=== PATIENT | female | born 1955 ===

== ENCOUNTER 2019-09-02 09:05 | Emergency (ER) | payer MEDICARE ==
[~2019-09-02] VITALS: Ht 149.9 cm; Wt 76.8 kg
[2019-09-02 09:16] VITALS: TEMP 99.1
[2019-09-02] MEDS ORDERED: VITAMINC500CH PO (10:00)
[2019-09-02 10:01] LABS: BASO % 0.3 % (0.0-2.0); EOS # 0.2 (0.0-0.7); EOS % 1.5 % (0-4.0); GRAN # 8.5 (1.4-6.5); GRAN % 75.2 % (42.2-75.2); HEMATOCRIT 44.5 % (37.0-47.0); HEMOGLOBIN 15.3 g/dl (12.5-16.0); LYMPH # 1.7 (1.2-3.4); LYMPH % 15.1 % (20.0-51.0); MEAN CELL VOLUME 91 fl (80.0-100.0); MEAN CORPUSCULAR HEMOGLOBIN 31 pg (27.0-31.0); MEAN CORPUSCULAR HGB CONC 34 g/dl (33.0-37.0); MEAN PLATELET VOLUME 9.9 fl (7.4-10.4); MONO # 0.9 (0.1-0.6); MONO % 7.6 % (1.7-9.3); PLATELET COUNT 248 K/mm3 (130-400); RED BLOOD COUNT 4.89 M/mm3 (4.10-5.30); REDCELL DISTRIBUTION WIDTH-CV 12.8 % (11.5-14.5)
[2019-09-02] MEDS ORDERED: VITAMIN D31000 IU PO (10:01)
[2019-09-02] MEDS ORDERED: CALCIUM WITH D31 CTB (10:01)
[2019-09-02] MEDS ORDERED: FLEXERIL 1010 MG/TAB PO (10:02)
[2019-09-02] MEDS ORDERED: PEPCID40 MG PO (10:03)
[2019-09-02 10:14] LABS: ALANINE AMINOTRANSFERASE 33 U/L (4-34); ALBUMIN 4.9 gm/dL (3.5-5.0); ALKALINE PHOSPHATASE 109 U/L (50-136); ANION GAP 11 mmol/L (7-16); AST,SGOT 36 U/L (15-37); BILIRUBIN,TOTAL 0.8 mg/dL (0.0-1.0); BLOOD UREA NITROGEN 11 mg/dL (7-17); CALCIUM 10.1 mg/dL (8.4-10.2); CARBON DIOXIDE 28 mmol/L (22-30); CHLORIDE 96 mmol/L (98-107); CREATININE, serum 0.51 (0.52-1.25); GLUCOSE 136 mg/dL (74-106); POTASSIUM 3.8 mmol/L (3.4-5.0); SODIUM 136 mmol/L (137-145); TOTAL PROTEIN 8.9 gm/dL (6.4-8.2)
[2019-09-02 10:27] LABS: TROPONIN-I < 0.012 ng/mL (0.000-0.035)
[2019-09-02] MEDS ORDERED: TAMBOCOR150 MG PO (10:27)
[2019-09-02] MEDS ORDERED: NEURONTIN300 MG/CAP PO (10:28)
[2019-09-02] MEDS ORDERED: NEURONTIN600 MG/TAB PO (10:29)
[2019-09-02] MEDS ORDERED: PRINIVIL10 MG PO (10:29)
[2019-09-02] MEDS ORDERED: BONIVA150 MG PO (10:29)
[2019-09-02] MEDS ORDERED: LOPRESSOR 550 MG/TAB PO (10:30)
[2019-09-02] MEDS ORDERED: MULTIPLE VITAMI1 CAP PO (10:31)
[2019-09-02] MEDS ORDERED: MORPHINE 1515 MG/TAB PO (10:31)
[2019-09-02] MEDS ORDERED: PERCOCET 325 MG1 TAB PO (10:32)
[2019-09-02] MEDS ORDERED: ZOLOFT 100MG100 MG PO (10:32)
[2019-09-02] MEDS ORDERED: COUMADIN 2MG2 MG/TAB PO (10:33)
[2019-09-02 13:37] VITALS: BP 142/87; PULSE 68
== END 2019-09-02 13:30 | disposition home or self-care (01) ==
LOC: COL.ER 09:05
PROVIDERS: Nurse Practitioner Primary Care
DX: I10 Essential (primary) hypertension (principal); K08.89 Other specified disorders of teeth and supporting structures; I48.91 Unspecified atrial fibrillation; M54.9 Dorsalgia, unspecified; G89.29 Other chronic pain; Z79.01 Long term (current) use of anticoagulants; Z79.891 Long term (current) use of opiate analgesic; Z89.611 Acquired absence of right leg above knee
CPT/HCPCS: J0780; J1170; J1200; J7040

== ENCOUNTER 2020-03-10 17:20 | Emergency (ER) | payer MEDICARE, OTHER ==
[~2020-03-10] VITALS: Ht 152.4 cm; Wt 77.3 kg
[~2020-03-10 17:20] MED LIST: BONIVA150 MG PO; CALCIUM WITH D31 CTB; COUMADIN 2MG2 MG/TAB PO; FLEXERIL 1010 MG/TAB PO; LOPRESSOR 550 MG/TAB PO; MORPHINE 1515 MG/TAB PO; MULTIPLE VITAMI1 CAP PO; NEURONTIN300 MG/CAP PO; NEURONTIN600 MG/TAB PO; PEPCID40 MG PO; PERCOCET 325 MG1 TAB PO; PRINIVIL10 MG PO; TAMBOCOR150 MG PO; VITAMIN D31000 IU PO; VITAMINC500CH PO; ZOLOFT 100MG100 MG PO
[2020-03-10] MEDS ORDERED: ZITHROMAX 250M250 MG PO (18:36)
[2020-03-10] MEDS ORDERED: PREDNISONE20 MG PO (18:36)
[2020-03-10 18:56] VITALS: BP 141/83; PULSE 82; TEMP 99.2
== END 2020-03-10 18:57 | disposition home or self-care (01) ==
LOC: COL.ER 17:20
DX: U07.1 COVID-19 (principal); I10 Essential (primary) hypertension; K21.9 Gastro-esophageal reflux disease without esophagitis; M19.90 Unspecified osteoarthritis, unspecified site; Z90.49 Acquired absence of other specified parts of digestive tract; Z87.891 Personal history of nicotine dependence; Z79.01 Long term (current) use of anticoagulants
CPT/HCPCS: J1100

== ENCOUNTER 2020-03-15 20:21 | Inpatient (IN) | payer MEDICARE, OTHER ==
[~2020-03-15] VITALS: Ht 152.4 cm; Wt 75.3 kg
[~2020-03-15 20:21] MED LIST changes: +PREDNISONE20 MG PO; +ZITHROMAX 250M250 MG PO
[2020-03-15 21:08] LABS: BASO % 0.1 % (0.0-2.0); EOS % 0.3 % (0-4.0); GRAN # 5.2 (1.4-6.5); GRAN % 71.8 % (42.2-75.2); HEMATOCRIT 44.9 % (37.0-47.0); HEMOGLOBIN 15.3 g/dl (12.5-16.0); LYMPH # 1.5 (1.2-3.4); LYMPH % 21.3 % (20.0-51.0); MEAN CELL VOLUME 91 fl (80.0-100.0); MEAN CORPUSCULAR HEMOGLOBIN 31 pg (27.0-31.0); MEAN CORPUSCULAR HGB CONC 34 g/dl (33.0-37.0); MEAN PLATELET VOLUME 9.3 fl (7.4-10.4); MONO # 0.4 (0.1-0.6); MONO % 5.8 % (1.7-9.3); PLATELET COUNT 217 K/mm3 (130-400); RED BLOOD COUNT 4.91 M/mm3 (4.10-5.30); REDCELL DISTRIBUTION WIDTH-CV 12.8 % (11.5-14.5)
[2020-03-15 21:09] LABS: INR 2.7 (0.8-3.0); PROTHROMBIN TIME 30.9 SECONDS (9.7-12.8)
[2020-03-15 21:15] LABS: ALANINE AMINOTRANSFERASE 87 U/L (4-34); ALBUMIN 4.4 gm/dL (3.5-5.0); ALKALINE PHOSPHATASE 92 U/L (50-136); ANION GAP 11 mmol/L (7-16); AST,SGOT 54 U/L (15-37); BILIRUBIN,TOTAL 0.5 mg/dL (0.0-1.0); BLOOD UREA NITROGEN 16 mg/dL (7-17); CALCIUM 9.5 mg/dL (8.4-10.2); CARBON DIOXIDE 27 mmol/L (22-30); CHLORIDE 96 mmol/L (98-107); CREATINE KINASE 26 U/L (30-135); CREATININE, serum 0.67 (0.52-1.25); GLUCOSE 134 mg/dL (74-106); POTASSIUM 3.4 mmol/L (3.4-5.0); SODIUM 133 mmol/L (137-145)
[2020-03-15 21:32] LABS: TROPONIN-I < 0.012 ng/mL (0.000-0.035)
[2020-03-16] VITALS (7 sets, daily range): BP systolic 101–131; BP diastolic 64–81; PULSE 105–121; TEMP 98.1; O2SAT 88–94
[2020-03-16] MEDS ORDERED: MS CONTIN 115 MG/TAB PO (04:45)
[2020-03-16] MEDS ORDERED: FLEXERIL 1010 MG/TAB PO (04:46)
[2020-03-16] MEDS ORDERED: ZOLOFT 50MG50 MG PO (04:46)
[2020-03-16] MEDS ORDERED: ZOLOFT 100MG100 MG PO (04:46)
[2020-03-16] MEDS ORDERED: LIPITOR20 MG PO (04:47)
[2020-03-16] MEDS ORDERED: PERCOCET 325 MG1 TAB PO (04:47)
[2020-03-16] MEDS ORDERED: PEPCID 20MG TAB20 MG PO (04:47)
[2020-03-16] MEDS ORDERED: COUMADIN4 MG PO (04:48)
[2020-03-16] MEDS ORDERED: NEURONTIN300 MG/CAP PO (04:48)
[2020-03-16] MEDS ORDERED: COUMADIN 3MG3 MG/TAB PO (04:49)
[2020-03-16] MEDS ORDERED: VITAMIN B COMPL1 SGL PO (04:50)
[2020-03-16] MEDS ORDERED: VITAMINC1000TA PO (04:50)
[2020-03-16] MEDS ORDERED: CALCIUM 600MG+D1 TAB PO (04:50)
[2020-03-16] MEDS ORDERED: ONE-A-DAY ESSE1 EACH PO (04:51)
[2020-03-16] MEDS ORDERED: LOPRESSOR 550 MG/TAB PO (04:53)
[2020-03-16] MEDS ORDERED: TAMBOCOR150 MG PO (04:53)
[2020-03-16] MEDS ORDERED: BONIVA150 MG PO (04:54)
[2020-03-16] MEDS ORDERED: MAGNESIUM200 MG PO (04:55)
[2020-03-16 08:23] LABS: BASO % 0.2 % (0.0-2.0); GRAN # 4.8 (1.4-6.5); GRAN % 85.4 % (42.2-75.2); HEMATOCRIT 43.6 % (37.0-47.0); HEMOGLOBIN 14.8 g/dl (12.5-16.0); LYMPH # 0.6 (1.2-3.4); LYMPH % 10.1 % (20.0-51.0); MEAN CELL VOLUME 91 fl (80.0-100.0); MEAN CORPUSCULAR HEMOGLOBIN 31 pg (27.0-31.0); MEAN CORPUSCULAR HGB CONC 34 g/dl (33.0-37.0); MEAN PLATELET VOLUME 9.4 fl (7.4-10.4); MONO # 0.2 (0.1-0.6); MONO % 3.6 % (1.7-9.3); PLATELET COUNT 185 K/mm3 (130-400); RED BLOOD COUNT 4.79 M/mm3 (4.10-5.30)
[2020-03-16 08:37] LABS: ANION GAP 9 mmol/L (7-16); BLOOD UREA NITROGEN 13 mg/dL (7-17); C-REACTIVE PROTEIN 3.9 mg/dL (0.0-0.9); CALCIUM 8.1 mg/dL (8.4-10.2); CARBON DIOXIDE 27 mmol/L (22-30); CHLORIDE 100 mmol/L (98-107); CREATININE, serum 0.43 (0.52-1.25); GLUCOSE 160 mg/dL (74-106); POTASSIUM 3.8 mmol/L (3.4-5.0); SODIUM 136 mmol/L (137-145)
[2020-03-16 08:48] LABS: TROPONIN-I < 0.012 ng/mL (0.000-0.035)
[2020-03-16 09:05] LABS: THYROID STIMULATING HORMONE 0.902 uIU/mL (0.465-4.680)
[2020-03-16 09:49] LABS: CLOSTRIDIUM DIFF A/B NEG; CLOSTRIDIUM DIFF A/B INTERP No C.diff present
--- NOTE | 2020-03-16 21:00 | NUR ---
Arrived to the unit via stretcher; alert and oriented and in no diestress upon arrival. Assessment complete; call light left within reach.
[2020-03-16] MEDS ORDERED: DESYREL 50MG50 MG PO (21:23)
--- NOTE | 2020-03-16 23:10 | NUR ---
Reporting a headache; prn tylenol administered and lights turned down. Will continue to monitor.
[2020-03-17] VITALS (7 sets, daily range): BP systolic 100–132; BP diastolic 62–98; PULSE 64–110; TEMP 97.9–98.8
[2020-03-17] MEDS ORDERED: DESYREL 50MG50 MG PO (02:13)
[2020-03-17 05:48] LABS: BASO % 0.1 % (0.0-2.0); HEMATOCRIT 38.4 % (37.0-47.0); HEMOGLOBIN 12.9 g/dl (12.5-16.0); LYMPH % 11.8 % (20.0-51.0); MEAN CELL VOLUME 92 fl (80.0-100.0); MEAN CORPUSCULAR HEMOGLOBIN 31 pg (27.0-31.0); MEAN CORPUSCULAR HGB CONC 34 g/dl (33.0-37.0); MEAN PLATELET VOLUME 9.5 fl (7.4-10.4); MONO # 0.6 (0.1-0.6); MONO % 6.5 % (1.7-9.3); PLATELET COUNT 189 K/mm3 (130-400); RED BLOOD COUNT 4.17 M/mm3 (4.10-5.30); REDCELL DISTRIBUTION WIDTH-CV 13.1 % (11.5-14.5)
[2020-03-17 05:56] LABS: CALCIUM 8.4 mg/dL (8.4-10.2); CREATININE, serum 0.46 (0.52-1.25); POTASSIUM 4.1 mmol/L (3.4-5.0)
[2020-03-17 06:00] LABS: INR 3.5 (0.8-3.0); PROTHROMBIN TIME 39.4 SECONDS (9.7-12.8)
--- NOTE | 2020-03-17 07:15 | NUR ---
RECEIVED REPORT FROM SHRADDHA PEREA. PT RESTING EASILY, RT AT BEDSIDE. PT ON 2L VIA NC. VSS. CALL LIGHT WITHIN REACH. SEE GTT FLOWSHEET.
--- NOTE | 2020-03-17 09:34 | NUR ---
Warfarin Initial Dosing Pharmacy Note Ordering Provider: Ron Richard MD Indication: Atrial fibrillation LABS: INR 3.5, UP FROM 2.7 Recommendation: WARFARIN 2.5 MG QHS, STARTING 03/18. HOLD 03/17. (ON DOXYCYCLINE) Home Regimen: 4 MG F/NUNEZ, 3 MG ALL OTHER.
--- NOTE | 2020-03-17 10:08 | NUR ---
SPOKE WITH DR HEATH AND DR CARTER ABOUT POC FOR PO MEDICAITONS. SEE NEW ORDERS.
--- NOTE | 2020-03-17 11:21 | NUR ---
SPOKE TO DR CARDENAS ABOUT ABX AND LABS PER DR CARTER'S REQUEST. NEW ORDERS RECEIVED.
--- NOTE | 2020-03-17 15:04 | NUR ---
CHAVO called patient's daughter to complete intake. Lauryn [phone]. Daughter states patient lives with her and her spouse. She has previously been using a cane and a walker, and was pretty much independent with ADL's, does not utilize any HH services at this time. Daughter states that PCP is Dr. Beckham, pharmacy is [facility], and that she is able to afford her medications at this time. Daughter states that she believes that patient has a DPOA-HC, but will need to look forward. She stated when she finds it she will bring a copy to the hospital. Daughter states the plan is for patient to return up on DC if able to. CHAVO informed that patient would be going to the medical floor. CHAVO will continue to follow.
--- NOTE | 2020-03-17 15:37 | NUR ---
REPORT GIVEN TO SHRADDHA MURRAY. ALL BELONGINGS SENT WITH PT. PT HAS CELLPHONE AND STATES WILL INFORM DAUGHTER ABOUT TRASNFER AND VISITIGN POLICY REMAINS THE SAME UPSTAIRS. VERBALIZED UNDERSTANDING.
--- NOTE | 2020-03-17 16:00 | NUR ---
Pt arrived to room 319, she is A/O x4. Her breathing is even and unlabored on 3L O2 via NC. Lungs CTA. HR regular. Pt denies any pain. No edema present at this time. Stump to RLE removed. No ulcerations visualized. Pt oriented to staff and room. Call light within reach. Will continue to monitor.
--- NOTE | 2020-03-17 20:00 | NUR ---
Assessment complete. Patient has no complaints of pain or discomfort. She is wearing 3 liters oxygen with no signs of increased work of breathing. She is assisted with the bedpan and voids at this time. She requests Vijayitussin for her cough to be brought in at 2300. Call light in reach, will continue to monitor.
--- NOTE | 2020-03-17 22:00 | NUR ---
Patient complains of heartburn at this time. Order for TUMS obtained and administered. Patient has no additional complaints of chest pain or other cardiac concerns. Will continue to monitor.
[2020-03-18] VITALS (284 sets, daily range): BP systolic 75–140; BP diastolic 44–79; PULSE 61–94; TEMP 98.1–98.9; O2SAT 78–100
[2020-03-18 06:41] LABS: INR 3.7 (0.8-3.0); PROTHROMBIN TIME 42.1 SECONDS (9.7-12.8)
[2020-03-18 06:49] LABS: CALCIUM 8.8 mg/dL (8.4-10.2); CREATININE, serum 0.51 (0.52-1.25); POTASSIUM 4.1 mmol/L (3.4-5.0)
--- NOTE | 2020-03-18 08:00 | NUR ---
PT PLEASANT, AOX4, RAC HAS SOME DRIED BLOOD AT SITE BUT IT DID NOT LEAK WITH FLUSHING, PT NOT REPORTING PAIN AT EITHER IV SITE, BP RETAKEN AND SYSTOLIC OF 109 OBTAINED, LOPRESSOR HELD DUE TO LOWER PRESSURE, CARRIAGE SETTER EQUAL, PT ON 6L AND SATTING 90%, PT REPORTS HEADACHE PAIN /10 AND RECEIVED SCHEDULED MS CONTIN. PT REPORTS LESSENING OF HEART BURN FROM DURING THE NIGHT BUT SAYS IT IS STILL PRESENT. EDUCATED HER ON PURPOSE OF PROTONIX AND ALL OTHER MEDICATIONS GIVEN, NO OTHER NEEDS AT THIS TIME.
--- NOTE | 2020-03-18 10:07 | NUR ---
PT DAUGHTER UPDATED
--- NOTE | 2020-03-18 12:51 | NUR ---
Rejector spoke with MYRTLE Villareal and requested PT/OT orders. SW will continue to follow for discharge needs.
--- NOTE | 2020-03-18 13:27 | NUR ---
Chaplain payan for patient while standing outside of door.
--- NOTE | 2020-03-18 14:32 | NUR ---
PICC LINE PLACED IN ANANT.
--- NOTE | 2020-03-18 15:00 | NUR ---
SUE RT NOTIFIED ME THAT PT WAS HAVING INC WOB, PT REPORTING CHEST PAIN FROM INC RESPIRAT[facility] DRIVE. DR. CARTER NOTIFIED AND SAID IT WAS FINE TO PUT PT ON AIRVO. WENT IN TO ASSESS PT WHO SAID PAIN WAS RELATED TO INC WOB AND PT WAS SATTING 96% ON 9L OXYMASK. UPDATED SUE RT AND SAID IF SHE KEPT 02 SATS UP WE COULD HOLD OFF ON AIRVO UNTIL OXYGEN NEEDS INC AGAIN. NO OTHER NEEDS AT THIS TIME.
--- NOTE | 2020-03-18 15:42 | NUR ---
OXYGEN DOWN TO 83%, DON RT PLACING PT ON AIRVO.
--- NOTE | 2020-03-18 16:11 | NUR ---
PT ON AIRVO 60L SATTING 93%, UPDATED DR. CARTER ON SITUATION AND WANTS TO MOVE PT TO ICU. CHARGE NURSE NOTIFIED.
--- NOTE | 2020-03-18 17:11 | NUR ---
RECEIVED REPORT FROM SHRADDHA MORRIS ON MEDICAL. AWAITING ARRIVAL OF PT TO ICU 6.
--- NOTE | 2020-03-18 17:43 | NUR ---
pt arrives via stretcher on airvo of 80%. rr 28 pox 97%, hr 75. pt aaox3. states "i feel good actually." call light within reach. placed n bedside continuous monitor.
--- NOTE | 2020-03-18 17:53 | NUR ---
PT TRANSFERRED TO ICU, REPORT GIVEN TO DARYL LLANES
--- NOTE | 2020-03-18 17:55 | NUR ---
DR CARTER MADE AWARE OF NA 167, NO NEW ORDERS
--- NOTE | 2020-03-18 18:17 | NUR ---
UPDATED DAUGHTER ON POC AND PT'S STATUS.
--- NOTE | 2020-03-18 19:40 | NUR ---
report recieved from SHRADDHA Og.
[2020-03-18 20:00] LABS: ARTERIAL BLD GAS O2 SATURATION 95.1 % (92-100); ARTERIAL BLD GAS TCO2 CT 22.9; ARTERIAL BLOOD GAS BASE EXCESS -1.3 (-2-2); ARTERIAL BLOOD GAS HCO3 21.9 meq/L (22-26); ARTERIAL BLOOD GAS PCO2 32.6 mmHg (35-45); ARTERIAL BLOOD GAS PO2 68.4 mmHg (80-100); ARTERIAL BLOOD GAS pH 7.45 (7.35-7.45)
--- NOTE | 2020-03-18 21:00 | NUR ---
PT'S DAUGHTER CALLED AND UPDATED. ALL QUESTIONS ANSWERED.
[2020-03-19] VITALS (797 sets, daily range): BP systolic 105–168; BP diastolic 56–88; PULSE 62–68; TEMP 97.7–98.8; O2SAT 78–100
[2020-03-19 05:47] LABS: INR 2.6 (0.8-3.0); PROTHROMBIN TIME 29.2 SECONDS (9.7-12.8)
[2020-03-19 05:50] LABS: BASO % 0.1 % (0.0-2.0); HEMOGLOBIN 11.8 g/dl (12.5-16.0); LYMPH # 0.9 (1.2-3.4); LYMPH % 7.3 % (20.0-51.0); MEAN CELL VOLUME 92 fl (80.0-100.0); MEAN CORPUSCULAR HEMOGLOBIN 30 pg (27.0-31.0); MEAN CORPUSCULAR HGB CONC 33 g/dl (33.0-37.0); MEAN PLATELET VOLUME 9.8 fl (7.4-10.4); MONO # 0.7 (0.1-0.6); MONO % 5.7 % (1.7-9.3); PLATELET COUNT 240 K/mm3 (130-400); RED BLOOD COUNT 3.88 M/mm3 (4.10-5.30); REDCELL DISTRIBUTION WIDTH-CV 13.3 % (11.5-14.5)
[2020-03-19 05:51] LABS: HEMATOCRIT 35.7 % (37.0-47.0)
[2020-03-19 05:53] LABS: CALCIUM 8.6 mg/dL (8.4-10.2); CREATININE, serum 0.52 (0.52-1.25); POTASSIUM 4.1 mmol/L (3.4-5.0)
[2020-03-19 06:10] LABS: ARTERIAL BLD GAS O2 SATURATION 95.3 % (92-100); ARTERIAL BLD GAS TCO2 CT 24.1; ARTERIAL BLOOD GAS PO2 74.8 mmHg (80-100); ARTERIAL BLOOD GAS pH 7.42 (7.35-7.45)
--- NOTE | 2020-03-19 07:22 | NUR ---
report given to SHRADDHA Lutz.
--- NOTE | 2020-03-19 08:00 | NUR ---
UPDATE GIVEN TO DAUGHTER, JHONY, AT THIS TIME.
--- NOTE | 2020-03-19 14:26 | NUR ---
Chaplain payan for patient while standing outside of door.
--- NOTE | 2020-03-19 20:35 | NUR ---
daughter Lauryn called and updated regarding pt. all questions answered.
--- NOTE | 2020-03-19 22:51 | NUR ---
pt now on bipap.
--- NOTE | 2020-03-19 23:39 | NUR ---
WAS NOTIFIED BY FRENCH KWAN THAT PT IS ON AFLUTTER AT LOQ 100S TO 110. MARIE COATES NOTIFIED AND ORDERED METOPROLOL.
[2020-03-20] VITALS (977 sets, daily range): BP systolic 114–149; BP diastolic 64–78; PULSE 56–117; TEMP 97.6–98.6; O2SAT 59–100
[2020-03-20 05:04] LABS: HEMOGLOBIN 11.4 g/dl (12.5-16.0); MEAN CELL VOLUME 93 fl (80.0-100.0); MEAN CORPUSCULAR HEMOGLOBIN 31 pg (27.0-31.0); MEAN CORPUSCULAR HGB CONC 33 g/dl (33.0-37.0); MEAN PLATELET VOLUME 9.2 fl (7.4-10.4); PLATELET COUNT 237 K/mm3 (130-400); RED BLOOD COUNT 3.71 M/mm3 (4.10-5.30); REDCELL DISTRIBUTION WIDTH-CV 13.1 % (11.5-14.5)
[2020-03-20 05:05] LABS: HEMATOCRIT 34.3 % (37.0-47.0)
[2020-03-20 05:22] LABS: CALCIUM 8.4 mg/dL (8.4-10.2); CREATININE, serum 0.5 (0.52-1.25); POTASSIUM 3.7 mmol/L (3.4-5.0)
[2020-03-20 05:34] LABS: INR 1.7 (0.8-3.0); PROTHROMBIN TIME 19.3 SECONDS (9.7-12.8)
[2020-03-20 05:38] LABS: BAND 3 % (0-10); LYMPHOCYTE 6 % (20.0-51.0); NEUTROPHILS 86 % (42.0-75.2); PLATELET ESTIMATE NORMAL (NORMAL)
--- NOTE | 2020-03-20 06:07 | NUR ---
PT NOW OFF OF BIPAP.
--- NOTE | 2020-03-20 07:27 | NUR ---
REPORT GIVEN TO SHRADDHA VELÁSQUEZ.
--- NOTE | 2020-03-20 10:04 | NUR ---
CHAVO contacted the patient to follow up and review d/c plan. The patient remains on 60 liters of oxygen via high flow cannula. The patient states that she plans on returning home with her daughter. She states that she feels well about returning home and is looking forward to it. She had no other questions for SW at this time. SW to continue to follow.
[2020-03-21] VITALS (734 sets, daily range): BP systolic 102–149; BP diastolic 56–80; PULSE 50–58; TEMP 97.9–99.3; O2SAT 69–100
[2020-03-21 05:41] LABS: HEMOGLOBIN 11.4 g/dl (12.5-16.0); MEAN CELL VOLUME 92 fl (80.0-100.0); MEAN CORPUSCULAR HEMOGLOBIN 31 pg (27.0-31.0); MEAN CORPUSCULAR HGB CONC 33 g/dl (33.0-37.0); MEAN PLATELET VOLUME 9.7 fl (7.4-10.4); PLATELET COUNT 204 K/mm3 (130-400); RED BLOOD COUNT 3.69 M/mm3 (4.10-5.30); REDCELL DISTRIBUTION WIDTH-CV 13.2 % (11.5-14.5)
[2020-03-21 05:43] LABS: HEMATOCRIT 34.1 % (37.0-47.0); INR 1.6 (0.8-3.0); PROTHROMBIN TIME 18.2 SECONDS (9.7-12.8)
[2020-03-21 05:55] LABS: CALCIUM 8.7 mg/dL (8.4-10.2); CREATININE, serum 0.58 (0.52-1.25); POTASSIUM 4.1 mmol/L (3.4-5.0)
[2020-03-21 06:17] LABS: ANISOCYTOSIS 1+; BAND 1 % (0-10); HYPOCHROMIA 1+; LYMPHOCYTE 7 % (20.0-51.0); METAMYELOCYTE 1 % (0-0); NEUTROPHILS 92 % (42.0-75.2); PLATELET ESTIMATE NORMAL (NORMAL); POLYCHROMASIA 1+
--- NOTE | 2020-03-21 21:29 | NUR ---
SpO2 82-88% on VapoTherm - Darci,RT in room with pt
--- NOTE | 2020-03-21 21:34 | NUR ---
Darci,RT increased FiO2 on VapoTherm to 95% and added Oxymask at 14L/min because pt is refusing to wear BiPAP - pt educated on potential need later. SpO2 maintaining >88%
[2020-03-22] VITALS (591 sets, daily range): BP systolic 97–152; BP diastolic 57–99; PULSE 50–139; TEMP 97.8–98.3; O2SAT 64–100
[2020-03-22 06:22] LABS: HEMOGLOBIN 11.5 g/dl (12.5-16.0); MEAN CELL VOLUME 92 fl (80.0-100.0); MEAN CORPUSCULAR HEMOGLOBIN 31 pg (27.0-31.0); MEAN CORPUSCULAR HGB CONC 34 g/dl (33.0-37.0); MEAN PLATELET VOLUME 9.8 fl (7.4-10.4); PLATELET COUNT 155 K/mm3 (130-400); RED BLOOD COUNT 3.71 M/mm3 (4.10-5.30); REDCELL DISTRIBUTION WIDTH-CV 13.1 % (11.5-14.5)
[2020-03-22 06:25] LABS: INR 2.2 (0.8-3.0); PROTHROMBIN TIME 25.1 SECONDS (9.7-12.8)
[2020-03-22 07:09] LABS: BAND 3 % (0-10); LYMPHOCYTE 7 % (20.0-51.0); METAMYELOCYTE 1 % (0-0); NEUTROPHILS 86 % (42.0-75.2)
[2020-03-22 07:10] LABS: PLATELET ESTIMATE NORMAL (NORMAL)
--- NOTE | 2020-03-22 17:18 | NUR ---
pt off airvo, states "it was drying my nose out." RT and this RN to bedside. spo2 65% on RA, HR 145. pt placed on bipap by RT Apoorva. pt spo2% up to 93%.
--- NOTE | 2020-03-22 20:10 | NUR ---
Patient complaining of "heartburn" says it is a burning pain in the eipgastric to upper center chest. Reports it up to an 8/10 at times. Denies any pressure or squeezing chest pain and no radiation. Has reported heartburn on and off "all day" Received tums and Malox on day shift but did not help. Reports mild nausea. HR curring 120-150's in A-fib RVR occasionally self converts to regular SR in the 70's. PRN zofran and scheduled pepcid administered along with all evening medicatons, including for her A-fib. Assisted with bedpan and per-care. Patient does not appear to be in any distress at this time and stated to this nurse "now I should be good for awhile" after assisting with evening cares. Will continue to monitor.
--- NOTE | 2020-03-22 21:30 | NUR ---
Patient resting in bed; HR SR with rate of 67. No concerns or complaints at this time.
[2020-03-23] VITALS (798 sets, daily range): BP systolic 94–128; BP diastolic 51–93; PULSE 59–72; TEMP 97.8–99.2; O2SAT 62–100
--- NOTE | 2020-03-23 00:20 | NUR ---
02 DESATURATED TO LOW 60'S. ENTERED PATIENT'S ROOM AND OBSERVED THAT AIRVO NASAL CANNULA WAS COMPLETELY OUT OF NOSTRILS; RE-PLACED INTO NARES. PATIENT SLEEPING AT THIS TIME BUT AWAKENED EASILY. REQUESTING TO USE BEDBAN. ASSISTED WITH TOILETING AND GURPREET-CARE. 02 UP TO 91% ON 55L 87%. WILL CONTINUE TO MONITOR.
[2020-03-23 04:24] LABS: BASO % 0.2 % (0.0-2.0); EOS % 0.1 % (0-4.0); GRAN # 17.7 (1.4-6.5); GRAN % 89.1 % (42.2-75.2); HEMOGLOBIN 11.5 g/dl (12.5-16.0); LYMPH # 1.1 (1.2-3.4); LYMPH % 5.5 % (20.0-51.0); MEAN CELL VOLUME 91 fl (80.0-100.0); MEAN CORPUSCULAR HEMOGLOBIN 31 pg (27.0-31.0); MEAN CORPUSCULAR HGB CONC 34 g/dl (33.0-37.0); MEAN PLATELET VOLUME 10.3 fl (7.4-10.4); MONO # 0.6 (0.1-0.6); MONO % 2.9 % (1.7-9.3); PLATELET COUNT 130 K/mm3 (130-400); RED BLOOD COUNT 3.66 M/mm3 (4.10-5.30)
[2020-03-23 04:25] LABS: HEMATOCRIT 33.4 % (37.0-47.0)
[2020-03-23 04:32] LABS: CALCIUM 8.8 mg/dL (8.4-10.2); CREATININE, serum 0.61 (0.52-1.25); POTASSIUM 4.3 mmol/L (3.4-5.0)
--- NOTE | 2020-03-23 06:30 | NUR ---
O2 probe switched from finger to forehead; arturenlty reading 98% on 65L and 90% on Airvo. Patient alert and oriented and resting comfortably in bed. Denies any concerns at this time.
[2020-03-23 11:56] LABS: INR 3.1 (0.8-3.0); PROTHROMBIN TIME 35.4 SECONDS (9.7-12.8)
--- NOTE | 2020-03-23 14:31 | NUR ---
PT AIRVO SETTINGS DECREASED FROM 85% TO 75% FIO2 AT 60L BY RT. VSS. SPO2 97%, RR 16. DENIES WORSENING OF SHORTNESS OF BREATH AFTER DECREASING SETTINGS.
--- NOTE | 2020-03-23 19:31 | NUR ---
Clarified coumadin order with Dr. Lorenzo; instructed to hold Warfarin this evening and re-check INR in the am.
--- NOTE | 2020-03-23 20:00 | NUR ---
Assessment complete; patient alert and oriented and in no distress. Assisted with a bed bath and linen change. Call light left within reach. Will continue to monitor.
--- NOTE | 2020-03-23 23:40 | NUR ---
Pt complaining of epigastric burning. Has been complaining of this type of pain on and off during her stay. Denies any squeezing/pressure or radiation of pain. Administered PRN maalox and zofran. Will continue to monitor.
[2020-03-24] VITALS (557 sets, daily range): BP systolic 92–132; BP diastolic 53–80; PULSE 62–79; TEMP 97.4–99; O2SAT 64–100
--- NOTE | 2020-03-24 00:54 | NUR ---
Called to room by patient and states still having buring heartburn; rates it as a 7\10 with no change in quality or type of pain. Called Delia, physician busy and left message with RN. Awaiting further orders.
--- NOTE | 2020-03-24 01:30 | NUR ---
Discussed patient status with Dr. Christopher. Will try viscous lidocaine with MOM for epigastric pain and added lipase to am labs. Will continue to monitor.
[2020-03-24 03:22] LABS: HEMOGLOBIN 10.8 g/dl (12.5-16.0); MEAN CELL VOLUME 91 fl (80.0-100.0); MEAN CORPUSCULAR HEMOGLOBIN 31 pg (27.0-31.0); MEAN CORPUSCULAR HGB CONC 34 g/dl (33.0-37.0); MEAN PLATELET VOLUME 9.9 fl (7.4-10.4); PLATELET COUNT 112 K/mm3 (130-400); RED BLOOD COUNT 3.47 M/mm3 (4.10-5.30); REDCELL DISTRIBUTION WIDTH-CV 13.1 % (11.5-14.5)
[2020-03-24 03:27] LABS: INR 3.3 (0.8-3.0); PROTHROMBIN TIME 37.6 SECONDS (9.7-12.8)
[2020-03-24 03:31] LABS: CALCIUM 8.6 mg/dL (8.4-10.2); CREATININE, serum 0.57 (0.52-1.25); POTASSIUM 4.3 mmol/L (3.4-5.0)
[2020-03-24 03:39] LABS: HEMATOCRIT 31.7 % (37.0-47.0)
[2020-03-24 03:42] LABS: BAND 3 % (0-10); LYMPHOCYTE 5 % (20.0-51.0); METAMYELOCYTE 1 % (0-0); NEUTROPHILS 90 % (42.0-75.2)
[2020-03-24 03:43] LABS: ANISOCYTOSIS 1+; PLATELET ESTIMATE DECREASED (NORMAL); SCHISTOCYTES 1+
--- NOTE | 2020-03-24 04:06 | NUR ---
Patient continues to complain of burning epigastric pain. Reports that lidocaine helped for "15-20 min" but then the pain returned. Lipase within normal limits and WBC count 20.2, although elevated WBC count has been attributed to her receiving steriods. Discussed labs and care with Dr. Christopher from [facility]. Can administer protonix early and can give additional dose of viscous lidocaine.
--- NOTE | 2020-03-24 11:22 | NUR ---
1000- pt continues to report persistant heartburn overnight and this morning without relief from prn medications. see MAR for medication administration. notified Dr. Lynch.
--- NOTE | 2020-03-24 18:45 | NUR ---
pt to room 305 via w/c on 15L oxymask. belongings sent with pt. notified finance analyst RN that pt is in room. call light left within reach.
--- NOTE | 2020-03-24 23:47 | NUR ---
Patient admitted to medical floor room 305 via wheelchair from ICU at 1930. Patient laying in bed upon enter the room. Patient A/Ox4. Patient on Airvo 50L and 65%. SPO2 94%. Patient denies SOB or dyspnea. Breathing even and unlabored. No acute respiratory distress noted. Patient has right side above knee amputation. Right upper leg skin is dark purplish color. Patient states skin discoloration is always there and it's due to right side above knee amputation. Patient states she has chronic back pain and she rates pain 7/10 at this time. Scheduled meds and MS contin given per order.Right upper arm PICC line has no s/s of complications. Assisted patient with using bed stokes and dena-care provied. Ice water and crackers provied per patient request. Call light within reach. Patient denies further needs at this time.
[2020-03-25] VITALS (7 sets, daily range): BP systolic 103–134; BP diastolic 56–80; PULSE 62–74; TEMP 97.2–98.4
--- NOTE | 2020-03-25 05:58 | NUR ---
Patient laying in bed with eyes closed at this time. Breathing even and unlabored. No s/s of acute respiratory distress noted. SPO2 92% on Airvo 50L and 65%. Call light within reach.
--- NOTE | 2020-03-25 06:40 | NUR ---
Report received from Tahira LLANES. Pt resting in bed without complaint. Call light in reach.
[2020-03-25 07:44] LABS: HEMOGLOBIN 10.6 g/dl (12.5-16.0); MEAN CELL VOLUME 92 fl (80.0-100.0); MEAN CORPUSCULAR HEMOGLOBIN 31 pg (27.0-31.0); MEAN CORPUSCULAR HGB CONC 34 g/dl (33.0-37.0); MEAN PLATELET VOLUME 11.2 fl (7.4-10.4); PLATELET COUNT 120 K/mm3 (130-400); RED BLOOD COUNT 3.41 M/mm3 (4.10-5.30); REDCELL DISTRIBUTION WIDTH-CV 13.3 % (11.5-14.5)
[2020-03-25 07:51] LABS: CALCIUM 8.1 mg/dL (8.4-10.2); CREATININE, serum 0.67 (0.52-1.25); POTASSIUM 4.2 mmol/L (3.4-5.0)
[2020-03-25 07:58] LABS: HEMATOCRIT 31.5 % (37.0-47.0)
--- NOTE | 2020-03-25 08:05 | NUR ---
Shift assessment complete. Pt sitting up in bed eating breakfast. A&Ox4, heart RRR. Lung sounds diminished to auscultation. Currently on 50L O2 by airvo at 65% with sats 91-92%. Reports moderate to severe pain to right wrist and back, pt reports this is chronic. Scheduled morhpine administered. Right upper arm PICC w/o S/S complication. Will continue to monitor.
[2020-03-25 08:17] LABS: INR 2.1 (0.8-3.0); PROTHROMBIN TIME 24.1 SECONDS (9.7-12.8)
[2020-03-25 09:06] LABS: BAND 6 % (0-10); EOSINOPHIL 1 % (0-4); LYMPHOCYTE 3 % (20.0-51.0); METAMYELOCYTE 1 % (0-0); NEUTROPHILS 86 % (42.0-75.2); PLATELET ESTIMATE DECREASED (NORMAL)
--- NOTE | 2020-03-25 15:43 | NUR ---
Sample Grinder collaborated with Hospitalist who advised patient may be a candidate for [facility]. CHAVO faxed referral and [facility] Clinical Liason advised patient would qualify based on need for 50 liters of oxygen. SW contacted patient by phone to review this. Patient reports she would be agreeable to [facility] if that is what is recommended. CHAVO also contacted patient's daughter, Lauryn to review discharge plan. Lauryn advised that she is agreeable to this as long as patient is agreeable. CHAVO will continue to follow.
--- NOTE | 2020-03-25 18:22 | NUR ---
Pt had relatively uneventful shift. Sat in bed with tv on throughout day. Complaints of chronic back and wrist pain, relieved by scheduled morphine and diclofenac gel. Remains on 50L O2 by airvo at 66%. No S/S respiratory distress.
--- NOTE | 2020-03-25 23:25 | NUR ---
Patient pleasant, A/Ox4. Patient c/o acking back pain on numeric pain scale of 5 out of 10. Scheduled pain med given per order. Pain relived with scheduled pain med after 1 hour. Patient denies SOB or dyspnea. Breathing even and unlabored. Currently on Airvo 50L and 66%. No acute respiratory distress noted. Right upper arm PICC site has no s/s of complications. Flushed with NS without any difficulty. Scheduled meds given per MAY. Call light within reach. Patient denies any needs at this time.
[2020-03-26 04:03] VITALS: BP 132/66; PULSE 64; TEMP 98.4
--- NOTE | 2020-03-26 05:45 | NUR ---
Patient rested well throughout the night. No acute distress noted. Assisted with using bed stokes and dena-care provied throughout the shift. Call light within reach. Will give report to day shift nurse.
[2020-03-26 06:01] LABS: HEMOGLOBIN 10.4 g/dl (12.5-16.0); MEAN CELL VOLUME 94 fl (80.0-100.0); MEAN CORPUSCULAR HEMOGLOBIN 32 pg (27.0-31.0); MEAN CORPUSCULAR HGB CONC 34 g/dl (33.0-37.0); MEAN PLATELET VOLUME 10.9 fl (7.4-10.4); PLATELET COUNT 114 K/mm3 (130-400); REDCELL DISTRIBUTION WIDTH-CV 13.6 % (11.5-14.5)
[2020-03-26 06:10] LABS: CALCIUM 8.2 mg/dL (8.4-10.2); CREATININE, serum 0.67 (0.52-1.25); POTASSIUM 4.4 mmol/L (3.4-5.0)
[2020-03-26 07:05] LABS: BAND 6 % (0-10); LYMPHOCYTE 4 % (20.0-51.0); NEUTROPHILS 90 % (42.0-75.2); PLATELET ESTIMATE DECREASED (NORMAL)
--- NOTE | 2020-03-26 07:13 | NUR ---
patient still on AIRVO2, 50LPM, FIO2 65%, SPO2 93%. WILL TRY TO WEAN THIS AFTERNOON.
[2020-03-26 07:30] VITALS: BP 98/52; PULSE 70; TEMP 98.1
--- NOTE | 2020-03-26 07:38 | NUR ---
Lying in bed with eyes open. Alert and oriented x4. Minimal pain at this time. Patient says that she battles chronic back pain and it usually is at its worst around 0830. Airvo at 50L, 65%. Denies SOA. Has occasional nasal drip and cough that is nonproductive. Lung sounds diminished. Patient assisted on to bedpan. Will provide pericare. Denies additional needs at this time.
[2020-03-26 09:50] LABS: INR 1.5 (0.8-3.0); PROTHROMBIN TIME 16.7 SECONDS (9.7-12.8)
[2020-03-26 11:16] VITALS: BP 108/76; PULSE 75; TEMP 97.8
--- NOTE | 2020-03-26 11:20 | NUR ---
Patient sitting up in bed watching TV. Denies pain at this time. Oxygen on at 50L, 65% on Airvo. Patient denies needs at this time.
--- NOTE | 2020-03-26 14:24 | NUR ---
Message left with [facility] for nurse to contact this nurse for report.
[2020-03-26 14:34] VITALS: BP 108/76; PULSE 75; TEMP 97.8
--- NOTE | 2020-03-26 14:51 | NUR ---
Receive call from Alexa with [facility] to take report. Report provided.
[2020-03-26 15:42] VITALS: BP 104/64; PULSE 79; TEMP 98.7
--- NOTE | 2020-03-26 16:34 | NUR ---
EMS here to pick patient up. Patient transfers self from bed to cart. Placed on Oxymask at 7L per respiratory. EMS assists patient to ambulance with all belongings.
--- NOTE | 2020-03-26 17:02 | NUR ---
[employer] spoke with Xi at [facility] who advised they have a bed available for patient today. Accepting physician is Dr. Melvin. CHAVO contacted [facility] and set transport time for 1600. CHAVO contacted patient by phone who is in agreement with discharge to [facility] and gave verbal consent on transfer authorization. CHAVO placed completed EMS forms on chart. CHAVO contacted patient's daughter, Lauryn to update on discharge. Lauryn will bring in clothes for patient to take with her to [facility]. CHAVO faxed discharge orders to Xi at [facility] and provided report number to RNMariza. Patient's daughter, Lauryn inquired if patient would qualify for Medicaid. CHAOV spoke with Xi at [facility] who advised she would have case management at their facility follow up on this. No additional needs at this time.
== END 2020-03-26 16:34 | disposition home or self-care (01) | DRG 177 ==
LOC: COL.ER 20:21 → ICU 03-16 19:24 → MEDICAL 03-17 17:16 → ICU 03-18 17:24 → MEDICAL 03-24 19:09
PROVIDERS: Emergency Medicine; Family Medicine; Hospitalist; Internal Medicine Pulmonary Disease; Nurse Practitioner Family; Student in an Organized Health Care Education/Training Program; ADMIT Internal Medicine
PROC: 02HV33Z Insertion of Infusion Device into Superior Vena Cava, Percutaneous Approach (ICD-10-PCS; principal; 2020-03-18)
DX: U07.1 COVID-19 (principal); J12.89 Other viral pneumonia; J96.01 Acute respiratory failure with hypoxia; I48.91 Unspecified atrial fibrillation; E11.9 Type 2 diabetes mellitus without complications; K21.9 Gastro-esophageal reflux disease without esophagitis; M19.90 Unspecified osteoarthritis, unspecified site; I10 Essential (primary) hypertension; R19.7 Diarrhea, unspecified; G35 Multiple sclerosis; G89.29 Other chronic pain; F32.9 Major depressive disorder, single episode, unspecified; Z89.611 Acquired absence of right leg above knee; Z79.02 Long term (current) use of antithrombotics/antiplatelets; Z87.891 Personal history of nicotine dependence
CPT/HCPCS: 99223-AI; 99232-AI; 99233-AI; C1751; C9113; J0696; J1100; J1815; J2405; J3010; J3475; J7030; J7050; J8540

== ENCOUNTER 2021-01-16 09:23 | Day surgery (SDC) | payer MEDICARE, OTHER ==
[~2021-01-16] VITALS: Ht 149.9 cm; Wt 64.8 kg
[~2021-01-16 09:23] MED LIST changes: +CALCIUM 600MG+D1 TAB PO; +COUMADIN 3MG3 MG/TAB PO; +COUMADIN4 MG PO; +DESYREL 50MG50 MG PO; +LIPITOR20 MG PO; +MAGNESIUM200 MG PO; +MS CONTIN 115 MG/TAB PO; +ONE-A-DAY ESSE1 EACH PO; +PEPCID 20MG TAB20 MG PO; +VITAMIN B COMPL1 SGL PO; +VITAMINC1000TA PO; +ZOLOFT 50MG50 MG PO
[2021-01-16] MEDS ORDERED: MS CONTIN 330 MG/TAB PO (09:37)
[2021-01-16] MEDS ORDERED: RENO CAPS1 SGL PO (09:41)
[2021-01-16 09:49] VITALS: BP 129/68; PULSE 60; TEMP 98.1
[2021-01-16] MEDS ORDERED: COZAAR 50MG50 MG/TAB PO (10:01)
--- NOTE | 2021-01-16 10:34 | NUR ---
Stat Protime/INR drawn since patient did not stop taking Coumadin. Will await results prior to starting procedure.
[2021-01-16 10:40] LABS: INR 2.9 (0.8-3.0); PROTHROMBIN TIME 32.7 SECONDS (9.7-12.8)
--- NOTE | 2021-01-16 10:51 | NUR ---
IV discontinued and patient dismissed to home due to Protime being to high.
== END 2021-01-16 10:55 | disposition home or self-care (01) ==
LOC: SDCO 09:23
PROVIDERS: Family Medicine
DX: Z12.11 Encounter for screening for malignant neoplasm of colon (principal); E11.9 Type 2 diabetes mellitus without complications; I48.91 Unspecified atrial fibrillation; I10 Essential (primary) hypertension; G89.29 Other chronic pain; M54.9 Dorsalgia, unspecified; K21.9 Gastro-esophageal reflux disease without esophagitis; G43.909 Migraine, unspecified, not intractable, without status migrainosus; F17.210 Nicotine dependence, cigarettes, uncomplicated; F32.9 Major depressive disorder, single episode, unspecified; F41.9 Anxiety disorder, unspecified; F43.10 Post-traumatic stress disorder, unspecified; Z89.619 Acquired absence of unspecified leg above knee; Z86.16 Personal history of COVID-19; Z79.899 Other long term (current) drug therapy; Z79.01 Long term (current) use of anticoagulants; Z53.8 Procedure and treatment not carried out for other reasons
CPT/HCPCS: J7120

== ENCOUNTER → 2021-03-27 | Outpatient (CLI) | payer MEDICARE, OTHER ==
[~2021-03-27] MED LIST changes: +COZAAR 50MG50 MG/TAB PO; +MS CONTIN 330 MG/TAB PO; +RENO CAPS1 SGL PO
== END ==
LOC: MC.RAD 11:15
DX: Z12.31 Encounter for screening mammogram for malignant neoplasm of breast (principal)

== ENCOUNTER 2021-04-03 06:24 | Day surgery (SDC) | payer MEDICARE, OTHER ==
[~2021-04-03] VITALS: Ht 152.4 cm; Wt 64.2 kg
[2021-04-03 07:18] VITALS: BP 115/68; PULSE 55; TEMP 97.3
[2021-04-03 07:36] LABS: INR 1.3 (0.8-3.0); PROTHROMBIN TIME 14.2 SECONDS (9.7-12.8)
[2021-04-03 08:48] VITALS: BP 151/79; PULSE 57; TEMP 98.9
[2021-04-03 09:00] VITALS: BP 137/68; PULSE 51
[2021-04-03 09:15] VITALS: BP 122/61; PULSE 49
--- NOTE | 2021-04-03 09:20 | NUR ---
[id number] Report received from SHRADDHA Rudolph, in GI Suite 2. 0845 Transport pt from GI Suite to GI [place] [facility] via cart. Pt remains on cart and desires to sleep for a little while. Monitors on and alarms set. Pt denies pain or nausea. Call light within reach. Pt's daughter present in room. 0900 Pt now requesting coffee and muffin. These brought to her. Pt waking up well and dialoguing appropriately. 09 Pt taking food and drink well. No complications noted or voiced by pt. Pt much more alert at this point. 0920 Hand off pt care to SHRADDHA Hunt.
== END 2021-04-03 10:00 | disposition home or self-care (01) ==
LOC: SDCO 06:24
PROVIDERS: Family Medicine
DX: Z12.11 Encounter for screening for malignant neoplasm of colon (principal); K63.5 Polyp of colon; I10 Essential (primary) hypertension; I48.91 Unspecified atrial fibrillation; K21.9 Gastro-esophageal reflux disease without esophagitis; I48.20 Chronic atrial fibrillation, unspecified; G43.909 Migraine, unspecified, not intractable, without status migrainosus; G89.29 Other chronic pain; M54.9 Dorsalgia, unspecified; E11.9 Type 2 diabetes mellitus without complications; E78.00 Pure hypercholesterolemia, unspecified; G47.00 Insomnia, unspecified; G54.6 Phantom limb syndrome with pain; M51.36 Other intervertebral disc degeneration, lumbar region; M25.512 Pain in left shoulder; F32.A Depression, unspecified; F41.9 Anxiety disorder, unspecified; F43.10 Post-traumatic stress disorder, unspecified; F11.20 Opioid dependence, uncomplicated; Z79.899 Other long term (current) drug therapy; Z87.891 Personal history of nicotine dependence; Z79.01 Long term (current) use of anticoagulants; Z83.3 Family history of diabetes mellitus
CPT/HCPCS: J2704; J3010; J7030

== ENCOUNTER 2021-08-08 07:29 | Outpatient (CLI) | payer MEDICARE, OTHER ==
[~2021-08-08] VITALS: Ht 152.4 cm; Wt 60.1 kg
[2021-08-08 08:01] LABS: HEMOGLOBIN 12.3 g/dl (12.5-16.0); MEAN CELL VOLUME 90 fl (80.0-100.0); MEAN CORPUSCULAR HEMOGLOBIN 31 pg (27-31); MEAN CORPUSCULAR HGB CONC 35 g/dl (33.0-37.0); PLATELET COUNT 172 K/mm3 (130-400); RED BLOOD COUNT 3.95 M/mm3 (4.10-5.30); REDCELL DISTRIBUTION WIDTH-CV 12.8 % (11.5-14.5)
[2021-08-08 08:05] LABS: HEMATOCRIT 35.7 % (37.0-47.0)
[2021-08-08] MEDS ORDERED: ASPIRIN E.C. 8181 MG PO (08:07)
[2021-08-08 08:09] LABS: INR 1.8 (0.8-3.0)
[2021-08-08 08:16] LABS: CALCIUM 8.9 mg/dL (8.4-10.2); CREATININE, serum 0.73 mg/dL (0.57-1.11); POTASSIUM 3.7 mmol/L (3.5-4.5)
[2021-08-08 08:21] VITALS: BP 123/71; PULSE 50; TEMP 97.4
[2021-08-08 09:50] VITALS: BP 141/67; PULSE 52
[2021-08-08 10:00] VITALS: BP 116/52; PULSE 49
[2021-08-08 10:15] VITALS: BP 137/59; PULSE 50
[2021-08-08 10:30] VITALS: BP 121/51; PULSE 53
[2021-08-08 10:45] VITALS: BP 129/60; PULSE 54
--- NOTE | 2021-08-08 11:35 | NUR ---
IV catheter removed with tip intact, pressure applied then dressed with gauze and coban. Discharge education given, pt verbalizes understanding. pts daughter at bedside. Pt escorted to exit via wheelchair.
--- NOTE | 2021-08-08 14:35 | NUR ---
Received report from SHRADDHA Patrick
== END 2021-08-08 11:30 | disposition home or self-care (01) ==
LOC: COL.RAD 07:29
PROVIDERS: Internal Medicine Adult Congenital Heart Disease
DX: I51.7 Cardiomegaly (principal); I34.0 Nonrheumatic mitral (valve) insufficiency; Z95.818 Presence of other cardiac implants and grafts
CPT/HCPCS: J2704

== ENCOUNTER 2022-07-23 12:24 | Outpatient (CLI) | payer MEDICARE ==
[~2022-07-23] VITALS: Ht 152.4 cm; Wt 61.5 kg
[~2022-07-23 12:24] MED LIST changes: +ASPIRIN E.C. 8181 MG PO; +COZAAR 25MG25 MG/TAB PO; -COZAAR 50MG50 MG/TAB PO; -MAGNESIUM200 MG PO; +MAGNESIUM250 M1 PO; +TAMBOCOR 1100 MG/TAB PO
[2022-07-23 13:22] VITALS: BP 161/72; PULSE 50; TEMP 97.9
[2022-07-23 13:24] LABS: HEMOGLOBIN 12.8 g/dl (12.5-16.0); MEAN CELL VOLUME 91 fl (80.0-100.0); MEAN CORPUSCULAR HEMOGLOBIN 32 pg (27-31); MEAN CORPUSCULAR HGB CONC 35 g/dl (33.0-37.0); MEAN PLATELET VOLUME 9.6 fl (7.4-10.4); PLATELET COUNT 182 K/mm3 (130-400); RED BLOOD COUNT 4.05 M/mm3 (4.10-5.30); REDCELL DISTRIBUTION WIDTH-CV 12.4 % (11.5-14.5)
[2022-07-23 13:32] LABS: HEMATOCRIT 36.9 % (37.0-47.0)
[2022-07-23 13:33] LABS: INR 1.1 (0.8-3.0); PROTHROMBIN TIME 12.6 SECONDS (9.7-12.8)
[2022-07-23 13:37] LABS: CALCIUM 9.2 mg/dL (8.4-10.2); CREATININE, serum 0.61 mg/dL (0.57-1.11); POTASSIUM 3.8 mmol/L (3.5-4.5)
[2022-07-23] MEDS ORDERED: NEURONTIN600 MG/TAB PO (13:48)
[2022-07-23] MEDS ORDERED: TOPROL XL 25MG25 MG PO (13:51)
[2022-07-23] MEDS ORDERED: VITAMIN D31000 I1 PO (13:59)
[2022-07-23] MEDS ORDERED: VOLTAREN 75 DR75 MG PO (14:12)
[2022-07-23] MEDS ORDERED: CENTRUM1 TA1 PO (14:13)
[2022-07-23] MEDS ORDERED: EFFER-K20 MEQ PO (14:14)
[2022-07-23] MEDS ORDERED: NATURAL E400 IU PO (14:15)
[2022-07-23 15:00] VITALS: BP 159/71; PULSE 59
[2022-07-23 15:15] VITALS: BP 143/75; PULSE 53
[2022-07-23 15:30] VITALS: BP 159/73; PULSE 58
[2022-07-23 15:45] VITALS: BP 157/68; PULSE 51
[2022-07-23 16:00] VITALS: BP 170/74; PULSE 57
--- NOTE | 2022-07-23 16:13 | NUR ---
PT CAME IN TODAY FOR A JOHN. WOKE UP QUICKLY AFTER THE PROCEDURE WITH NO COMPLICATIONS. PTS VITALS WITHIN NORMAL LIMITS. GOT UP AND USED THE RESTROOM AN HR POST PROCEDURE, WAS STEADY. HAS TOLERATED PO. EDUCTION GIVEN. WILL BE ESCORTED OUT ONCE RIDE ARRIVES.
== END 2022-07-23 16:31 ==
LOC: COL.RAD 12:24
PROVIDERS: Internal Medicine Cardiovascular Disease
DX: I48.0 Paroxysmal atrial fibrillation (principal); Z45.2 Encounter for adjustment and management of vascular access device; I48.91 Unspecified atrial fibrillation; R00.1 Bradycardia, unspecified

== ENCOUNTER → 2023-04-01 | Outpatient (CLI) | payer MEDICARE, OTHER ==
[~2023-04-01] MED LIST changes: +CENTRUM1 TA1 PO; +EFFER-K20 MEQ PO; +NATURAL E400 IU PO; +TOPROL XL 25MG25 MG PO; +VITAMIN D31000 I1 PO; +VOLTAREN 75 DR75 MG PO
== END ==
LOC: MC.RAD 07:27
DX: Z12.31 Encounter for screening mammogram for malignant neoplasm of breast (principal)